=== PATIENT | male | born 1970 | race Caucasian/White ===

== ENCOUNTER 2019-01-31 15:53 | Emergency (ER) | payer OTHER ==
[2019-01-31] MEDS ORDERED: Glucagon,Human Recombinant 1 MG Vial IVPUSH ONE (16:03)
[2019-01-31] MEDS ORDERED: Metoclopramide 10 MG/2 ML SDV IVPUSH ONE (16:03)
[2019-01-31] MEDS ORDERED: fentaNYL 100 MCG/2 ML SDV IVPUSH ONE ×2 (16:03→16:40)
[2019-01-31] MEDS ORDERED: Hyoscyamine 0.125 MG Tab.SL SL ONE ×2 (16:07→16:39)
--- NOTE | 2019-01-31 16:09 | EDM.PDOC ---
ED HPI GENERAL MEDICAL PROBLEM - General Chief Complaint: ENT Problem Stated Complaint: CHOKING OFF FOOD Time Seen by Provider: 01/31/19 15:56 Source of Information: Reports: Patient, Family History Limitations: Reports: No Limitations (s) - History of Present Illness INITIAL COMMENTS - FREE TEXT/NARRATIVE: 48-year-old male presents to the [facility] with food bolus i.e. a piece of chicken stuck in his upper esophagus. This happens to him quite frequently were a piece of food will get stuck in his upper esophagus. These almost always been able to regurgitated up and has never had to seek medical care. Currently pain is felt right behind his sternal notch in his upper neck and throat area. He is spitting up his saliva without blood. States that food bolus became lodged while eating about 2 hours ago i.e. 1400 hrs. 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 [No Known Home Meds] 01/31/19 [History] Past Medical History Gastrointestinal History: Reports: Other (See Below) (Rare history of having any reflux or heartburn.) - Past Surgical History GI Surgical History: Reports: Appendectomy Social & Family History - Tobacco Use Smoking Status *Q: Never Smoker - Caffeine Use Caffeine Use: Reports: Coffee - Recreational Drug Use Recreational Drug Use: No - Living Situation & Occupation Living situation: Reports: Occupation: Employed ED ROS ENT - Review of Systems Review Of Systems: See Below Constitutional: Reports: No Symptoms HEENT: Reports: Throat Pain Respiratory: Reports: No Symptoms (With attempts to swallow even saliva is coming back up.) Cardiovascular: Reports: Chest Pain (Upper central chest pain with pressure in the sternal notch due to foreign body lodged in his esophagus.) Endocrine: Reports: No Symptoms GI/Abdominal: Reports: Other (Occasional GERD.) : Reports: No Symptoms Musculoskeletal: Reports: No Symptoms Skin: Reports: No Symptoms Neurological: Reports: No Symptoms Psychiatric: Reports: No Symptoms Hematologic/Lymphatic: Reports: No Symptoms Immunologic: Reports: No Symptoms ED EXAM, ENT - Physical Exam Exam: See Below Exam Limited By: No Limitations General Appearance: Alert, WD/WN, Moderate Distress, Other (He is regurgitating his saliva and vomiting up secretions.) Eye Exam: Bilateral Eye: Normal Inspection Mouth/Throat: Normal Inspection, Normal Gums, Normal Lips, Normal Oropharynx Head: Atraumatic, Normocephalic Neck: Normal Inspection, Supple, Non-Tender, Full Range of Motion. No: Lymphadenopathy (L), Lymphadenopathy (R) Respiratory/Chest: No Respiratory Distress, Lungs Clear, Normal Breath Sounds, No Accessory Muscle Use, Chest Non-Tender. No: Wheezing, Stridor Cardiovascular: Normal Peripheral Pulses, Regular Rate, Rhythm, No Edema, No Gallop, No Murmur, No Rub GI/Abdominal: Normal Bowel Sounds, Soft, Non-Tender, No Organomegaly, No Abnormal Bruit, No Mass, Pelvis Stable Extremities: Normal Inspection, Normal Range of Motion, Non-Tender Neurological: Alert, Oriented, CN II-XII Intact, Normal Cognition, Normal Gait Course - Vital Signs Last Recorded V/S: Last Vital Signs Temp 36.3 C 01/31/19 15:55 Pulse 100 01/31/19 15:55 Resp 18 01/31/19 15:55 BP 131/90 01/31/19 15:55 Pulse Ox 99 01/31/19 15:55 - Orders/Labs/Meds Orders: Active Orders 24 hr Category Date Time Status Lactated Ringers [Ringers, Lactated] 1,000 ml Med 01/31/19 16:15 Active IV ASDIRECTED Medication Orders Lactated Ringer's (Ringers, Lactated) 1,000 mls @ 100 mls/hr IV ASDIRECTED JOSUÉ Last Admin: 01/31/19 16:13 Dose: 100 mls/hr Meds: Medications Generic Name Dose Route Start Last Admin Trade Name Freq PRN Reason Stop Dose Admin Lactated Ringer's 1,000 mls @ 100 mls/hr 01/31/19 16:15 01/31/19 16:13 Ringers, Lactated IV 100 mls/hr ASDIRECTED JOSUÉ Administration Discontinued Medications Generic Name Dose Route Start Last Admin Trade Name Fred PRN Reason Stop Dose Admin Fentanyl 50 mcg 01/31/19 16:03 01/31/19 16:09 Sublimaze IVPUSH 01/31/19 16:04 50 mcg ONETIME ONE Administration Fentanyl 50 mcg 01/31/19 16:40 Sublimaze IVPUSH 01/31/19 16:41 ONETIME ONE Glucagon 1 mg 01/31/19 16:03 01/31/19 16:24 Glucagen IVPUSH 01/31/19 16:04 1 mg ONETIME ONE Administration Hyoscyamine 0.125 mg 01/31/19 16:07 01/31/19 16:12 Hyomax-Sl SL 01/31/19 16:08 0.125 mg ONETIME ONE Administration Hyoscyamine 0.125 mg 01/31/19 16:39 Hyomax-Sl SL 01/31/19 16:40 ONETIME ONE Metoclopramide HCl 7.5 mg 01/31/19 16:03 01/31/19 16:09 Reglan IVPUSH 01/31/19 16:04 7.5 mg ONETIME ONE Administration - Radiology Interpretation Free Text/Narrative:: 48-year-old male presents the ED with foreign body sensation cessation in his upper esophagus due to a piece of chicken that did not go down. Patient states he's had this problem many times the past but has always been able to regurgitated back up. Still been 2 hours since his piece of chicken was lodged in his upper esophagus and he can't swallow his saliva. Skin pain with attempts to swallow. Regurgitating saliva at this time without blood. Plan IV : Ringer's lactate at 100 mils per hour. He'll then receive Reglan 7.5 mg IV and fentanyl 50 g IV and Levsin 0.125 mg sublingual. 10 minutes later he will receive glucagon 1 mg IV. - Re-Assessments/Exams Free Text/Narrative Re-Assessment/Exam: 01/31/19 16:28 patient did regurgitate a small portion of talar tot that he was eating at the same time as he was eating chicken. This was prior to receiving the glucagon IV. 01/31/19 16:40 patient did get a small piece of keratotic chicken up. However he still feels spasm in his upper esophagus. The Levsin sublingual and fentanyl 50 g IV to see if this will relax the esophagus enough room to regurgitate the rest of this retained food. 01/31/19 16:47 patient reported 2 minutes ago that the pressure in his throat is now gone he felt it go down and swallowed it. I gave him a half a glass of serum missed any swallowed with no problems. Therefore the obstruction has resolved. He will be discharged home. He is advised to set up an upper GI endoscopy to see if he is refluxing at nighttime without being aware of it. Discussed with his primary care physician and have this arranged Departure - Departure Time of Disposition: 16:48 Disposition: Home, Self-Care 01 Condition: Fair Clinical Impression: Impacted foreign body in esophagus Qualifiers: Encounter type: initial encounter Qualified Code(s): T18.108A - Unspecified foreign body in esophagus causing other injury, initial encounter - Discharge Information Referrals: Thom Lazaro MD [Primary Care Provider] - Forms: ED Department Discharge Additional Instructions: Evaluation the emergent today due to an impacted food bolus i.e. tater tot and chicken in the upper esophagus. This is happened to you in the past but never to the point that it didn't resolve on its own in a short period of time. Therefore treated with intravenous fluids and medications Reglan 7.5 for milligrams IV for nausea relief and fentanyl 50 g IV for pain relief and to try and relax the upper esophageal muscle. Also Levsin 0.125 mg sublingual and to the tongue. After that she were given glucagon 1 mg IV which is the medication that primarily works to relax the esophageal muscle wall. This resulted in some degree of success with initial expulsion of a small piece of chicken in tater tot and then within a few minutes able to swallow the remainder of the bolus. You're able to drink clear fluids without any problems after this. Suggest follow-up with your primary care physician to arrange an upper GI endoscopy at some point time to make sure that you not refluxing significantly during the night without any known heartburn. It may be that you have some problems with motility of the upper posterior wall of the pharynx which unfortunately there is no good medication for. - My Orders Last 24 Hours: My Active Orders 01/31/19 16:15 Lactated Ringers [Ringers, Lactated] 1,000 ml IV ASDIRECTED - Assessment/Plan Last 24 Hours: My Active Orders 01/31/19 16:15 Lactated Ringers [Ringers, Lactated] 1,000 ml IV ASDIRECTED
[2019-01-31] MEDS ORDERED: Lactated Ringers 1,000 ML IV SCH (16:15)
== END 2019-01-31 17:01 | disposition home or self-care (01) ==
LOC: JD.ED 15:53
DX: T18.128A Food in esophagus causing other injury, initial encounter (principal)
CPT/HCPCS: 96361; 96374; 96375; 99283; A9270; J1610; J2765; J3010; J7120; 99284